=== PATIENT | female | born 2000 | race Caucasian/White ===

== ENCOUNTER 2024-07-07 16:00 | Outpatient (CLI) | payer BC, SELFPAY | END 2024-07-07 16:01 | disposition home or self-care (01) | PROVIDERS: Visit Provider Physician Assistant | DX: N30.90 Cystitis, unspecified without hematuria (principal); N30.01 Acute cystitis with hematuria | CPT/HCPCS: 87086; 87186 ==

== ENCOUNTER 2024-12-08 05:32 | Emergency (ER) | payer BC, SELFPAY ==
--- OUTSIDE RECORDS SUMMARY | 2024-12-08 05:35 | XMS_ITS | Clinical Summary ---
Author Organization [facility] Tariff Address [address] [address] Care Team Providers Care Customer Technical Services Manager Name Role Phone Unavailable Primary Care Provider Unavailabl e Source Comments You are receiving this document as you are listed as the primary care provider,follow-up provider, or the patient has been referred to you for consultation.This is in compliance with the Medicare and[facility] Cent[facility] EHR Incentive Program,which states Providers who transition their patient to another setting of careor provider of care or refers their patient to another provider of care shouldprovide summary care record for each transition of care or referral. [employer] Allergies Active Allergy Reactions Criticality Noted Date Comments Cinnamon Rash 07/28/2020 Medications * This document contains information received from the source organization and may not represent a complete record from that organization. tretinoin (RETIN-A) 0.05 % cream Apply 1 Pump topically daily at bedtime. 0 Active Multiple Vitamin (MULTIVITAMINS OR) Active calcium carbonate-vitam in D (OS-LIVAN 500 WITH D) 500-200 MG-UNIT per tablet Take 2 Tablets by mouth daily. Active Active Problems Problem Noted Date Diagnosed Date OCD (obsessive compulsive disorder) 08/24/2020 MDD (major depressive disorder), recurrent episo de, mild 08/24/2020 Other specified eating disorder 07/28/2020 Acrocyanosis 07/28/2020 History of self-harm 07/28/2020 SANDOVAL (generalized anxiety disorder) 07/28/2020 Depressive disorder 07/28/2020 Amenorrhea, secondary 07/28/2020 Social History Tobacco Use Types Packs/Day Years Used Date Smoking Tobacco: Never Assessed PHQ-2 Answer Date Recorded PHQ-2 Score 4 01/04/2022 Comments No Sex and Gender Information Value Date Recorded Sex Assigned at Not on file Legal Sex Female 8:16 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 Gender Identity Not on file Sexual Orientation Not on file Last Filed Vital Signs Vital Sign Reading Time Taken Comments Blood Pressure 111/72 04/04/2021 12:58 PM CDT Pulse 101 04/04/2021 12:58 PM CDT Temperature 36.4 C (97.6 F) 04/04/2021 12:56 PM CDT Respiratory Rate - - Oxygen Saturation - - Inhaled Oxygen Concentration - - Weight 46.2 kg (101 lb 12.8 oz) 021 12:56 PM CDT Height 162.7 cm (5' 4.06) 04/04/2021 1 2:56 PM CDT Body Mass Index 17.44 04/04/2021 12:56 PM CDT Plan of Treatment Health Maintenance Due Date Last Done Comments Cervical Cancer Screening Due 2002 Hep C Screening (Preventive Services) 2002 MenB Immunization Discussion 2002 HIV Screening (Preventive Services) 2018 Adult Preventive Visit 2020 HepB Vaccine (1) 2021 Chlamydia 12/20/2023 12/19/2022 DTaP/Tdap/Td Vaccine (7 - Tdap) 07/11/2025 07/11/2015, 10/08/2006, 01/11/2004, Additional history exists Zoster/Shingles Vaccine (1 of 2) 2052 Hib Vaccine Completed 01/11/2004, 02/16, 2002 Pneumococcal Vaccine Completed 01/11/2004, 10/11/2003, 02/26/2003, Additional history exists IPV (Polio) Vaccine Completed 10/08/2006, 07/30/2003, 2002, Additional history exists HepA Vaccine Completed 05/10/2016, 07/11/2015 HPV Vaccine Completed 07/22/2018, 05/10/2016 MCV4 Vaccine Completed 02/13/2019, 07/11/2015 COVID-19 Vaccine Completed 05/21/2024, 12/2022, 06/03/2022, Additional history exists Influenza Vaccine Completed 05/21/2024, , 06/02/2022, Additional history exists Insurance [facility] [address]
--- OUTSIDE RECORDS SUMMARY | 2024-12-08 05:35 | XMS_ITS | Clinical Summary ---
Author Organization [facility] Address [address] [place] [address] Care Team Providers Care B And B Gang Worker Name Role Phone Yasmany Barnard M.D. Primary Care Provider [phone] Source Comments Patient records contain information from all sites at [facility]. For routine questions regarding patient records, call [phone] during business hours, M-F 8:00 AM - 5:00 PM Central Time. Record requests for emergency care only can be directed to [phone] at any time.[facility] Allergies Active Allergy Reactions Criticality Noted Date Comments Cinnamon Rash 07/28/2020 Medications * This document contains information received from the source organization and may not represent a complete record from that organization. multivitamin chewable tablet Chew 1 tablet daily. 4 Active calcium carbonate-vitam in D3 (Calcium 600 with Vitamin D3) 600 mg(1,500mg) -400 unit tablet,chewable Chew. Acti ve tretinoin (RETIN-A) 0.05 % creamIndication s:Acne Comedone Apply 1 application topically at bedtime. 45 g 3 1 Active norgestimate-et hinyl estradioL (Sprintec, 28,) 0.25- mg-35 mcg per tablet Take 1 tablet by mouth daily. Take pills continuously skipping placebo week 94 tablet 5 4 Active hydrOXYzine (VistariL) 25 mg capsuleIndicati ons:Anxiety Take 1 capsule (25 mg total) by mouth every 6 (six) hours as needed for anxiety. 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 07/01/2020 Acne Comedone 08/07/2016 Anxiety Resolved Problems Problem Noted Date Diagnosed Date Resolved Date Acrocyanosis 07/28/2020 03/03/2024 Infection Upper Respiratory 12/20/2018 02/17/2020 Need Vaccine Immunization 07/22/2018 Concussion No Loss Of Consciousness Initial 05/31/2016 02/17/2020 Immunizations Immunization Administration Dates Next Due 4vHPV (discontinued) 05/10/2016 9vHPV 07/22/2018,05/10/2016 DTaP (Infanrix, Tripedia) 10/08/2006,,02/26/2003,2002,2002 H1N1 All Forms 08/04/2009,07/07/2009 HepA Pediatric/Adolescent 05/10/2016,07/11/2015 HepB Pediatric/Adolescent 02/26/2003,2002, 2002 HepB, Unspecified 02/26/2003,2002 Hib (PRP-T) (ACTHIB, HIBERIX) 01/11/2004, 003,2002 IPV 10/08/2006, 3,2002,2002 Influenza, Injectable, Mdck, Preservative Free, Quadrivalent 06/08/2019 Influenza, Injectable, Quadrivalent 07/11/2015 Influenza, Unspecified 06/02/2022,05/10/2016, MCV4 (Menactra)(Discontinued) 02/13/2019, 015 MMR 10/08/2006,10/11/2003 PCV13 01/11/2004, 4,02/26/2003,2002 Tdap 07/11/2015 Tuberculin Skin Test, Unspecified 06/25/2016 BIBI 10/08/2006,05/30/2004 influenza LAIV (Nasal) (2 ye ars through 49 years) 06/02/2013 influenza trivalent LAIV (Na joseph) (2 years through 49 years) 05/30/2011,05/24/2010 influenza vaccine quad (FLUZONE/FLUARIX) (6 months and older)(PF) 05/23/2023,05/14/2020,07/22/2018,2015 Family History Relation Name Status Comments Father Alive Mother Alive Social History Tobacco Use Types Packs/Day Years Used Date Smoking Tobacco: Never Smokeless Tobacco: Never Alcohol Use Standard Drinks/Week Comments Not Currently 1 (1 standard drink = 0.6 oz pur e alcohol) rare [facility] Utilities Answer Date Recorded In the past 12 months has e [employer], gas, oil, or water [employer] threatened to shut off services in your home? No 02/24/2024 Humiliation, Afraid, Rape, and Kick questionnair e Answer Date Recorded Within the last year, have y ou been afraid of your partner or ex-partner? No 09/17/2022 Within the last year, have y ou been humiliated or emotionally abused in other ways by your partner or ex-partner? No Within the last year, have y ou been kicked, hit, slapped, or otherwise physically hurt by your partner or ex-partner? No 09/17/2022 Within the last year, have y ou been raped or forced to have any kind of sexual activity by your partner or ex-partner? No 09/17/2022 Social Connection and Isolat ion Panel [NHANES] Answer Date Recorded In a typical week, how many times do you talk on the phone with family, friends, or neighbors? More than three times a week 09/17/2022 How often do you get togethe r with friends or relatives? Three times a week 09/17/2022 How often do you attend chur ch or episcopal services? Never 09/17/2022 Do you belong to any clubs o r organizations such as pentecostalism groups, unions, fraternal or athletic groups, or school groups? Yes 09/17/2022 How often do you attend meet ings of the clubs or organizations you belong to? 1 to 4 times per year 09/17/2022 Are you , , di vorced, , never , or living with a partner? Patient declined 09/17/2022 AUDIT-C Answer Date Recorded Q1: How often do you have a drink containing alc ohol? 2-4 times a month 09/17/2022 Q2: How many drinks containi ng alcohol do you have on a typical day when you are drinking? 1 or 2 09/17/2022 Q3: How often do you have si x or more drinks on one occasion? Never 09/17/2022 Overall Financial Resource Strain (CARDIA) Answe r Date Recorded How hard is it for you to pa y for the very basics like food, housing, medical care, and heating? Patient declined 09/17/2022 PHQ-2 Answer Date Recorded PHQ-2 Score 2 02/28/2024 [facility] - Occupational Stress Questionnaire Answer Date Recorded Do you feel stress - tense, restless, nervous, or anxious, or unable to sleep at night because your mind is troubled all the time - these days? To some extent 09/17/2022 Exercise Vital Sign Answer Date Recorde d On average, how many days pe r week do you engage in moderate to strenuous exercise (like a brisk walk)? 4 days 02/24/2024 On average, how many minutes do you engage in exercise at this level? 30 min 02/24/2024 Hunger Vital Sign Answer Date Recorded Within the past 12 months, y ou worried that your food would run out before you got the money to buy more. Never true 02/24/20 24 Within the past 12 months, t he food you bought just didn't last and you didn't have money to get more. Never true 02/24/2024 PRAPARE - Transportation Answer Date Re corded In the past 12 months, has l ack of transportation kept you from medical appointments or from getting medications? No 03/2024 In the past 12 months, has l ack of transportation kept you from meetings, work, or from getting things needed for daily living? No 02/24/2024 Depression Answer Date Recor ded PHQ-9 Total Score (max 27) 12 02/27 Nutrition Answer Date Recorded On average, how many serving s of fruits and vegetables do you eat per day (serving size is equal to 1 cup or approximately the size of a tennis ball)? 3-5 02/24/2024 Dental Answer Date Recorded Dental: Regular Dentist Yes 08/16/20 Employment Answer Date Recorded Employment status Employed and actively working without restrictions 02/24/2024 Housing Stability Answer Date Recorded What is your living situation today? I have a [facility] place to live 02/24/2024 Education Answer Date Recorded What is the highest level of school you have completed or the highest degree you have received? 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 Gender Identity Female 02/24/2024 2:41 PM CDT Sexual Orientation Bisexual 02/24/2024 2: 41 PM CDT Last Filed Vital Signs Vital Sign Reading Time Taken Comments Blood Pressure 103/64 02/28/2024 12:46 PM CDT Pulse 87 02/28/2024 12:46 PM CDT Temperature 36.7 C (98.1 F) 02/28/2024 12:46 PM CDT Respiratory Rate 16 11/04/2019 3:48 PM CDT Oxygen Saturation 97% 10/01/2019 3:43 PM SIZE STAMPER Inhaled Oxygen Concentration - - Weight 51.8 kg (114 lb 3.2 oz) 02/28/2024 12:46 PM CDT Height 163.9 cm (5' 4.53) 02/28/2024 12:46 PM C DT Body Mass Index 19.28 02/28/2024 12:46 PM CDT Plan of Treatment Health Maintenance Due Date Last Done Comments Chlamydia and Gonorrhea Screening 12/20/2023 023 Depression Monitoring (PHQ-9) 06/30/2024 02/28/2024 Depression Monitoring (PHQ-9 for quality tracking) 08/19/2024 DTaP,Tdap,and Td Vaccines (7 - Td or Tdap) 07/11/2025 07/11/2015, 10/08/2006, 01/11/2004, Additional history exists Cervical/Vaginal Cancer Screening 02/27/2027 024 Hepatitis B Vaccines Completed 02/26/2003, 02/26/2003, 2002, Additional history exists Pneumococcal vaccine (0-49 years) Completed 01/11/2004, 10/11/2003, 02/26/2003, Additional history exists IPV Vaccines Completed 10/08/2006, 07/19, 2002, Additional history exists Varicella Vaccines Completed 10/08/2006, 05/30/2004 HPV Vaccines Completed 07/22/2018, 04/20, 05/10/2016 Meningococcal Vaccine Completed 02/13/2019, 015 HIV Screening Completed 12/19/2022 Hepatitis C Screening Completed 12/19/2022 COVID-19 Vaccine Completed 05/21/2024, 12/2022, 06/03/2022, Additional history exists Influenza Vaccine Completed 05/21/2024, , 06/02/2022, Additional history exists Procedures Procedure Name Priority Date/Time Associated Diagnosis Comments THINPREP SCREEN HPV REFLEX Routine 02/28/2024 1:48 PM CDT Pap Smear Examination HCV AB SCRN W/REFLEX TO HCV PCR, S Routine 12/19/2022 10:11 AM CDT Screening For Venereal Disease HIV-1/-2 AG AND AB SCRN, PLASMA Routine 12/19/2022 10:11 AM CDT Screening For Venereal Disease CHLAMYDIA/GONORRHOE AE AMPLIFIED RNA Routine 12/19/2022 10:04 AM CDT Screening For Venereal Disease from Last 3 Months or Most Recently Relevant to Health Maintenance Results * ThinPrep Screen HPV Reflex (02/28/2024 1:48 PM CDT) 03/04/2024 10:32 AM CDT [facility] Report electronically signed by LUPE Ledesma[facility] I verify that I have examined all relevant slides/materials for the specimen(s) and rendered or confirmed the diagnosis. 03/04/2024 10:32 AM CDT [facility] Gross Description Received specimen in a ThinPrep vial. 03/04/2024 10:32 AM CDT [facility] Pap Test Source Cervical/Endocervi veronica 03/04/2024 10:32 AM CDT [facility] Clinical History Well female exam 10:32 AM CDT [facility] Menstrual Status(LMP, PM, ) April 2023 03/04/2024 10:32 AM CDT [facility] Hormone Therapy/Contracep tives Oral contraceptive 03/04/2024 10:32 AM CDT [facility] Interpretation Cervical/Endocervi veronica (ThinPrep): Satisfactory for Evaluation Negative for Intraepithelial Lesion or Malignancy 03/04/2024 10:32 AM CDT [facility] Thin Prep Vial (Cervix/Endocerv ix) 02/28/2024 1:48 PM CDT 03/02/2024 8:31 AM CDT Serena Rojas APRN, C.N.P., D.N.P. LAB PAP PATHD X ORDERABLES Final Result [facility] [address] [place] [address], [facility] [address] [address] * HIV-1/-2 Ag and Ab Scrn, Plasma (12/19/2022 10:11 AM CDT) HIV Ag/Ab Scrn, P Negative Negative 12/20/2022 6:32 AM CDT [facility] Comment: Negative result does not rule out HIV infection. If exposure to HIV infection occurred <14 days ago, contact the laboratory to request addition of HIV-1 RNA detection / quantification test. HIV-1 p24 Ag Scrn, P Negative Negative 12/20/2022 6:32 AM CDT [facility] Comment: Negative result does not rule out HIV infection. If exposure to HIV infection occurred <14 days ago, contact the laboratory to request addition of HIV-1 RNA detection / quantification test. HIV-1 Ab Scrn, P Negative Negative 12/20/2022 6:32 AM CDT [facility] Comment: Negative result does not rule out HIV infection. If exposure to HIV infection occurred <14 days ago, contact the laboratory to request addition of HIV-1 RNA detection / quantification test. HIV-2 Ab Scrn, P Negative Negative 12/20/2022 6:32 AM CDT [facility] Comment: Negative result does not rule out HIV infection. If exposure to HIV infection occurred <14 days ago, contact the laboratory to request addition of HIV-1 RNA detection / quantification test. Blood (Blood, Venous) 12/19/2022 10:11 AM CDT 12/19/2022 6:16 PM CDT Alyssa Beckford D.O. LAB MICROBIOLOGY - BLOOD ORDERABLES Final Result [facility] [address] [place] [address], [facility] in [address] [address] * HCV Ab Scrn w/Reflex to HCV PCR, Serum (12/19/2022 10:11 AM CDT) HCV Ab Screen, S Negative Negative 12/20/19 7:42 PM CDT [facility] Comment: Biotin has been identified by the circus agent as a potential interfering substance. Higher concentrations of biotin may be found in multivitamins, hair/nail supplements, and workout supplements. If the result does not match clinical observations, repeat testing after patient refrains from the use of supplements for at least 12 hours. Blood (Blood, Venous) 12/19/2022 10:11 AM CDT 12/19/2022 2:20 PM CDT Narrative [facility] - 12/19/2022 7:42 PM CDT Specimen Information: Specimen ID: [id number] Specimen Type: Blood Specimen Collection Start Date: 12/19/2022 10:11 AM Specimen Received Date: 12/19/2022 2:20 PM Specimen ID: [id number] Specimen Type: Blood Specimen Collection Start Date: 12/19/2022 10:11 AM Specimen Received Date: 12/19/2022 7:09 PM us Alyssa T Braxton-Stophel D.O. LAB MICROBIOLOGY - BLOOD ORDERABLES Final Result [facility] [address] [place] [address], [facility] [place] [address] [place] [address] * Chlamydia / Gonorrhoeae Amplified RNA (12/19/2022 10:04 AM CDT) Source Urine, Urine, First Voided 12/19/2022 10:57 PM CDT [facility] Chlamydia trachomatis amplified RNA Negative Negative 12/19/2022 10:57 PM CDT [facility] Source Urine, Urine, First Voided 12/19/2022 10:57 PM CDT [facility] Neisseria gonorrhoeae amplified RNA Negative Negative 12/19/2022 10:57 PM CDT [facility] Urine (Urine, First Voided) 12/19/2022 10:04 AM CDT 12/19/2022 7:01 PM CDT us Alyssa T Shakeel D.O. LAB MICROBIOLOGY - GENERAL ORDERABLES Final Result Performing Organization Address City/[facility]/ZIP Co de Phone Number [facility] [address] [place] [address], [place] [facility] [address] [facility] [address] [place] [phone] from Last 3 Months or Most Recently Relevant to Health Maintenance [facility] [id number] Care Teams B And B Gang Worker Relationship Specialty Start Date End Date Yasmany Barnard M.D. [address] [place] [address] PCP - General 09/18/24
--- OUTSIDE RECORDS SUMMARY | 2024-12-08 05:35 | XMS_ITS | Clinical Summary ---
Author Organization [facility] Address [address] [place] [address] Care Team Providers Care Centerless Grinder Set Up Operator Name Role Phone Ryan Corbett MD Primary Care Provide r Allergies No known active allergies Medications No known medications Immunizations Immunization Administration Dates Next Due DTP 10/08/2006, 4,02/26/2003,2002,2002 HIB PRP-D (ProHIBIT) 01/11/2004,02/26/2003,10/05 Hepatitis B (Peds) 02/26/2003,2002, 003 Inactivated Polio Vaccine 10/08/2006,07/2003,2002,2002 Influenza A (H1N1), Inactiva michelle (Age >=3 Years) 08/04/2009,07/07/2009 Influenza, IIV3 (Age >=3 years) 05/24/2010 MMR 10/08/2006,10/11/2003 Pneumococcal conj 7-Valent ( Prevnar 7) 01/11/2004,10/11/2003,02/26/2003,2002 Tuberculin (PPD) 06/25/2016 Varicella Vaccine 10/08/2006,05/30/2004 Social History Tobacco Use Types Packs/Day Years Used Date Smoking Tobacco: Never Alcohol Use Standard Drinks/Week Comments No 0 (1 standard drink = 0.6 oz pur e alcohol) Comments No Sex and Gender Information Value Date Recorded Sex Assigned at Not on file Legal Sex Female 7:57 AM 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 Gender Identity Not on file Sexual Orientation Not on file Occupation Industry Job Start Date Job End Date [employer] student Not on file Not on file Not on oscar e Obstetrics History Last Filed Vital Signs Vital Sign Reading Time Taken Comments Blood Pressure 102/76 04/18/2022 7:27 PM CDT Pulse 90 04/18/2022 7:27 PM CDT Temperature 36.6 C (97.9 F) 04/18/2022 7:27 PM CDT Respiratory Rate 16 04/18/2022 7:27 PM CDT Oxygen Saturation 98% 04/18/2022 7:27 PM CDT Inhaled Oxygen Concentration - - Weight 46.1 kg (101 lb 9.6 oz) 04/18/2022 7:30 P M CDT Height 162.6 cm (5' 4) 04/18/2022 7:30 PM CDT Body Mass Index 17.44 04/18/2022 7:30 PM CDT Plan of Treatment Health Maintenance Due Date Last Done Comments Tdap 2013 Depression screening for age 12+ 2014 HIV for age 15-65 2017 HPV series for age 9-26 (1 - 3-dose series) 2017 BMI (ht and wt on same day) for age 18+ 2020 Hepatitis C screening for age 18-79 2020 Tetanus booster 2022 Pap test for age 21-65 2023 COVID-19 vaccine series ( season) 2024 08/07/2021, 11/01/2020, 10/11/2020 Influenza Vaccine (Season Ended) 2025 05/24/2010 Pneumococcal series for age 6-49 Aged Out 01/11/2004, 10/11/2003, 02/26/2003, Additional history exists No longer eligible based on patient's age to complete this topic Insurance [facility] [address] [place] [id number] [facility] [address] [place] [id number] [facility] [address] [place] [id number] * Guarantor: RICHIE HINOJOSA Account Type Relation to Patient Date of Phone Billing Address [facility] Health/Evelyn Father ATTN MALINDA AGUIAR [address] [facility] [address] Care Teams Centerless Grinder Set Up Operator Relationship Specialty Start Date End Date Ryan Corbett MD [address] [place] [address] PCP - General Family Practice 04/26/20
[2024-12-08 05:38] VITALS: BP 105/76; PULSE 93; RESP 16; TEMP 35.8; O2SAT 97; BMI 19.7
--- NOTE | 2024-12-08 06:05 | ED_ITS ---
HPI - General Adult General Chief complaint: Nausea/Vomiting Stated complaint: Throwing up, stomach pain Time Seen by Provider: 12/08/24 05:55 Source: patient Mode of arrival: ambulatory Limitations: no limitations History of Present Illness HPI narrative: 24-year-old female presents the emergency department for nausea and vomiting. Present for about 7 hours. No fever. No abdominal injury or trauma. No bloody vomit, no bloody diarrhea. No loose stools. Reports pain in the right lower back, epigastrium and suprapubic areas, really nonfocal. Has not tried any Tylenol, ibuprofen or other treatments. No known illness exposures. 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 No recent travel, no prior GI surgeries. Denies chance of . Valid sources in the emergency department report that the patient has been known to use marijuana in the past. Past medical history notable for history of remote AFib, not on long-term medication, was during anorexia treatment. Current medications are oral contraception and topical retinoid for acne. ROS is notable for the GI symptoms only, otherwise denies times 12 systems. Related Data Home Medications ?Medication ?Instructions ?Recorded ?Confirmed hydroxyzine pamoate 25 mg capsule 50 mg PO BID 12/25/23 07/07/24 norgestimate 0.25 mg-ethinyl tab PO 12/25/23 07/07/24 estradiol 0.035 mg tablet (Bradford-Linyah) tretinoin 0.025 % topical cream 1 applic topical QHS 12/25/23 07/07/24 multivitamin 1 tab PO QAM 07/07/24 07/07/24 Allergies Allergy/AdvReac Type Severity Reaction Status Date / Time cinnamon Allergy Verified 12/08/24 05:41 [facility] Social History Smoking Status: Former smoker Do you use any of these nicotine containing products: None How often do you have a drink containing alcohol: never AUDIT-C Alcohol total score: 0 Non-prescribed substance use: denies use Exam Const: Vital Signs, click to edit/add: Vital Signs - 24 hr 12/08/24 05:38 Temperature 96.5 F L Pulse Rate [Pulse Oximeter] 93 Respiratory Rate 16 Blood Pressure [Ri ght Upper Arm] 105/76 Pulse Oximetry 97 Oxygen Delivery Me thod Room Air Documenting provider has reviewed patient's vital signs: yes Common normals: no apparent distress General appearance: cooperative HENMT: Common normals: normocephalic and moist oral mucous membranes Head and scalp: normocephalic Eye: Common normals: conjunctivae normal General eye: normal appearance of both eyes Conjunctiva: conjunctiva(e) normal Neck & C-Spine: Common normals: full ROM and no lymphadenopathy Resp: Common normals: normal respiratory effort, no use of accessory muscles and clear to auscultation bilaterally Effort & inspection: able to speak in complete sentences Auscultation: clear to auscultation bilaterally Cardio: Common normals: regular rate, regular rhythm, S1 normal heart sound, S2 normal heart sound and no murmurs Rate: regular rate Rhythm: regular rhythm Heart sounds: S1 normal and S2 normal GI: Common normals: Normal to inspection, nondistended, normoactive bowel sounds present, soft to palpation, no hepatosplenomegaly and no masses Palpation: soft and no hepatosplenomegaly Other: Mildly tender to palpation of suprapubic region, right mid abdomen, epigastrium. Not specifically in the right lower quadrant, and there is certainly no rebound tenderness or guarding. Extremity: Common normals: normal to inspection and normal capillary refill Psych: Common normals: speech normal Activity/motor behavior: appropriate eye contact Speech: normal speech Attention/concentration: attention grossly intact Memory/cognition: memory grossly intact Skin: Common normals: no rashes or lesions noted General skin exam: no rashes or lesions noted Course Course ED Course: 24-year-old female with nausea and vomiting. Differential diagnosis including proper most likely gastroenteritis but cannot exclude, pancreatitis, colitis, nephrolithiasis, complication, cannabis induced hyperemesis, bowel obstruction, amongst others. Exam was fairly reassuring. There is certainly no hypotension or tachycardia or fever. Recommended a trial of 8 mg of Zofran, 400 of ibuprofen and re-evaluation in our. If she is able to hold down liquids, would recommend continuing on Zofran p.r.n.. If symptoms not improving, labs and CT. Rationale and risk of radiation discussed. Reevaluation(s) Time of Reevaluation #1: 06:50 Reevaluation #1: Patient with mild improvement in symptoms. She is tolerating apple juice and water without difficulty. Still feels nauseated but has not vomited since she arrived to the ED an hour ago. Repeat abdominal exam actually shows a little improvement in pain, certainly no localizing pain, rebound tenderness or guarding. I do not recommend further workup. Discussed gastroenteritis, typical course. Okay to use [id number] Imodium if needed. Prescription for Zofran provided. Recommend automatic repeat in 6-8 hours and then continue as needed. Alarm symptoms reviewed that would warrant ED presentation. She verbalizes understanding and agreement. Written instructions provided. Vital Signs Vital signs: Initial Vital Signs Temperature 96.5 F L 12/08/24 05:38 Temperature Source Temporal Artery Scan 12/08/24 05:38 Pulse Rate 93 12/08/24 05:38 Respiratory Rate 16 12/08/24 05:38 Blood Pressure 105/76 12/08/24 05:38 Blood Pressure Mean 85 12/08/24 05:38 Blood Pressure Position Sitting 12/08/24 05:38 Pulse Oximetry 97 12/08/24 05:38 Oxygen Delivery Method Room Air 12/08/24 05:38 Vital Signs Temperature 96.5 F L 12/08/24 05:38 Pulse Rate 93 12/08/24 05:38 Respiratory Rate 16 12/08/24 05:38 Blood Pressure 105/76 12/08/24 05:38 Pulse Oximetry 97 12/08/24 05:38 Oxygen Delivery Method Room Air 12/08/24 05:38 Temperature 96.5 F L 12/08/24 05:38 Pulse Rate 93 12/08/24 05:38 Respiratory Rate 16 12/08/24 05:38 Blood Pressure 105/76 12/08/24 05:38 Pulse Oximetry 97 12/08/24 05:38 Oxygen Delivery Method Room Air 12/08/24 05:38 Medications Administered Medications: Discontinued Medications Generic Name Dose Route Start Last Admin Trade Name Freq PRN Reason Stop Dose Admin Ibuprofen 400 mg 12/08/24 06:03 12/08/24 06:10 Ibuprofen 200 Mg Tablet PO 12/08/24 06:04 400 mg ONCE ONE Administration Ondansetron HCl 8 mg 12/08/24 06:03 12/08/24 06:10 Ondansetron Odt 4 Mg Tab PO 12/08/24 06:04 8 mg ONCE ONE Administration Discharge Plan Discharge Clinical Impression: Gastroenteritis Patient Disposition: Home, Self-Care Condition: Improved Instructions: Gastroenteritis (DC) Additional Instructions: As we discussed, your symptoms really do seem to be from a viral gastroenteritis, also known as the stomach flu. Less likely that this would have been caused by bacterial food poisoning but not easy to tell for sure. We only treat food poisoning if there is bloody diarrhea, otherwise they are treated the same way. Treatment is with oral fluid rehydration and treatment with antiemetics to help treat the vomiting. Your given 8 mg of Zofran here in the emergency department. I am thankful that this has at least stop the vomiting for now. I would expect you to continue to feel fatigued, nauseated, low-grade headache and some low-grade body aches. I would recommend that you repeat another dose of Zofran 6-8 hours which would be somewhere between noon and 2. After that, you can continue taking the Zofran up to every 6 hours but are not likely to need additional dosing. For pain, I recommend ibuprofen 500 mg every 5 hours and/or Tylenol 650 mg every 5 hours. You should return to the emergency department if you have persistent high fever, severe unrelenting pain, bloody diarrhea or other alarming symptoms. Home from school today but may return tomorrow. Activity Level: Activity as Tolerated Discharge Diet: Regular Prescriptions: No Action norgestimate-ethinyl estradiol [Bradford-Linyah] 0.25-35 mg-mcg tablet PO hydroxyzine pamoate 25 mg capsule 50 mg PO BID tretinoin 0.025 % cream 1 applic topical QHS multivitamin Tablet 1 tab PO QAM Follow Up/Referrals: Provider,Not a Local [Primary Care Provider] - Stand Alone Forms: [employer] Info Instructions
[2024-12-08] MEDS: ONDANSETRON ODT 4 MG TAB 8 MG PO (06:10)
[2024-12-08] MEDS: IBUPROFEN 200 MG TABLET 400 MG PO (06:10)
--- OUTSIDE RECORDS SUMMARY | 2024-12-08 06:48 | XMS_ITS | Clinical Summary ---
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 Not on file Not on file [...] patient's age to complete this topic Insurance [facility] [address] [place] [id number] [facility] [address] [place] [address] [facility] [address] [place] [address] * Guarantor: RICHIE HINOJOSA Account Type Relation to Patient Date of Phone Billing Address [facility]Evelyn Father ATTN MALINDA AGUIAR [address] [facility] [address] Care Teams Spud Grader Relationship Specialty Start Date End Date Ryan Corbett MD [address] [facility] [place] [address] PCP - General Family Practice 04/26/20
--- OUTSIDE RECORDS SUMMARY | 2024-12-08 06:48 | XMS_ITS | Clinical Summary ---
Author Organization [facility] Address [address], [place] [address] Care Team Providers Care Stave Cutter Name Role Phone Unavailable Primary Care Provider Unavailabl e Source Comments You are receiving this document as you are listed as the primary care provider,follow-up provider, or the patient has been referred to you for consultation.This is in compliance with the Medicare and[facility], In[facility]aid EHR Incentive Program,which states Providers who transition their patient to another setting of careor provider of care or refers their patient to another provider of care shouldprovide summary care record for each transition of care or referral. 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
--- OUTSIDE RECORDS SUMMARY | 2024-12-08 06:48 | XMS_ITS | Clinical Summary ---
Author Organization [facility] Address [address] [place] [address] Care Team Providers Care Certified Energy Manager Name Role Phone Yasmany Barnard M.D. Primary Care Provider [phone] Source Comments Patient records contain information from all sites at [facility]. For routine questions regarding patient records, call [phone] during business hours, M-F 8:00 AM - 5:00 PM Central Time. Record requests for emergency care only can be directed to [phone] at any time.[facility] Allergies Active Allergy Reactions Criticality Noted Date [...] oz pur e alcohol) rare [facility] Utilities Answer Date Recorded In the past 12 months has e [employer], gas, oil, or water [employer] threatened to shut off services in your [...] often do you attend chur ch or hinduism services? Never 09/17/2022 Do you belong to any clubs o r organizations such as islam groups, unions, fraternal or athletic groups, or [...] Answer Date Recorded PHQ-2 Score 2 02/28/2024 [facility] - Occupational Stress Questionnaire Answer Date Recorded [...] living situation today? I have a [facility] place to live 02/24/2024 Education Answer Date Recorded What is the highest level of school you have completed or the highest degree you have received? 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 Gender Identity Female 02/24/2024 2:41 PM CDT Sexual Orientation Bisexual 02/24/2024 2: 41 PM CDT Last Filed Vital Signs Vital Sign Reading Time Taken Comments Blood Pressure 103/64 02/28/2024 12:46 PM CDT Pulse 87 02/28/2024 12:46 PM CDT Temperature 36.7 C (98.1 F) 02/28/2024 12:46 PM CDT Respiratory Rate 16 11/04/2019 3:48 PM CDT Oxygen Saturation 97% 10/01/2019 3:43 PM SOLAR SALES ADVISOR Inhaled Oxygen Concentration - - Weight 51.8 [...] CDT HK[facility] Report electronically signed by LUPE Ledesma[facility] I verify that I have examined all [...] LAB PAP PATHD X ORDERABLES Final Result [facility] [address] [place] [address], [facility] HKCY [address] [address] * HIV-1/-2 Ag and Ab Scrn, Plasma [...] LAB MICROBIOLOGY - BLOOD ORDERABLES Final Result [facility] [address] [place] [address], [facility] in [address] [address] * HCV Ab Scrn w/Reflex to HCV PCR, Serum (12/19/2022 10:11 AM CDT) HCV Ab Screen, S Negative Negative 12/20/19 7:42 PM CDT MKTO Comment: Biotin has been identified by the jewel oliving machine operator as a potential interfering substance. Higher concentrations of biotin may be found in multivitamins, hair/nail supplements, and workout supplements. If the result does not match clinical observations, repeat testing after patient refrains from the use of supplements for at least 12 hours. Blood (Blood, Venous) 12/19/2022 10:11 AM CDT 12/19/2022 2:20 PM CDT Narrative [facility] - 12/19/2022 7:42 PM CDT Specimen Information: Specimen ID: [id number] Specimen Type: Blood Specimen Collection Start Date: 12/19/2022 10:11 AM Specimen Received Date: 12/19/2022 2:20 PM Specimen ID: [id number] Specimen Type: Blood Specimen Collection Start Date: 12/19/2022 10:11 AM Specimen Received Date: 12/19/2022 7:09 PM us Alyssa T Braxton-Stophel D.O. LAB MICROBIOLOGY - BLOOD ORDERABLES Final Result [facility] [address] [place] [address], [facility] MKTO [facility] [address] [place] [address] * Chlamydia / Gonorrhoeae Amplified RNA (12/19/2022 [...] GENERAL ORDERABLES Final Result Performing Organization Address City/[facility]/ZIP Co de Phone Number [facility] [address] [place] [address], [place] MKTO [address] [facility] [address] [place] [id number] from Last 3 Months or Most Recently Relevant to Health Maintenance [facility] [place] [place] [id number] Care Teams Certified Energy Manager Relationship Specialty Start Date End Date Yasmany Barnard M.D. [address] [place] [id number] PCP - General 09/18/24
== END 2024-12-08 07:00 | disposition home or self-care (01) ==
PROVIDERS: Emergency Provider Family Medicine
DX: K52.9 Noninfective gastroenteritis and colitis, unspecified (principal)
CPT/HCPCS: 99283; A9270